=== PATIENT | female | born 1975 | race Caucasian/White ===

== ENCOUNTER 2017-01-20 18:25 | Emergency (ER) | payer MEDICAID ==
[2017-01-20 20:50] LABS: microscopic required? YES; urine erythrocyte NEGATIVE (NEGATIVE)
[2017-01-20 21:32] LABS: CALCIUM 8.4 mg/dL (8.5-10.1); CARBON DIOXIDE 31.1 mmol/L (21-32); CHLORIDE SERUM 105 mmol/L (98-107); CREATININE SERUM 0.7 mg/dL (0.6-1.0); GFR1 > 60 mL/min; GLUCOSE SERUM 94 mg/dL (74-106); POTASSIUM SERUM 4.4 mmol/L (3.5-5.1); SODIUM SERUM 139 mmol/L (136-145)
[2017-01-21 00:01] VITALS: BP 103/64
== END 2017-01-21 00:02 | disposition home or self-care (01) ==
LOC: ED 18:25
PROVIDERS: Emergency Medicine
DX: N83.201 Unspecified ovarian cyst, right side (principal)
CPT/HCPCS: 87491; 87591

== ENCOUNTER 2018-08-15 04:23 | Emergency (ER) | payer MEDICAID ==
[~2018-08-15] VITALS: Ht 167.6 cm; Wt 82.7 kg
[2018-08-15 04:29] VITALS: Ht 167.6 cm; Wt 82.7 kg
[2018-08-15 05:57] VITALS: BP 111/77
== END 2018-08-15 05:57 | disposition home or self-care (01) ==
LOC: ED 04:23
DX: K64.5 Perianal venous thrombosis (principal); Z88.1 Allergy status to other antibiotic agents

== ENCOUNTER 2018-08-17 14:50 | Emergency (ER) | payer MEDICAID ==
[~2018-08-17] VITALS: Ht 167.6 cm; Wt 81.6 kg
[2018-08-17 14:57] VITALS: BP 132/72; Ht 167.6 cm; Wt 81.6 kg
== END 2018-08-17 17:03 | disposition home or self-care (01) ==
LOC: ED 14:50
DX: K64.9 Unspecified hemorrhoids (principal); Z88.1 Allergy status to other antibiotic agents; Z87.42 Personal history of other diseases of the female genital tract
CPT/HCPCS: J1885